=== PATIENT | male | born 1970 | race Caucasian/White ===

== ENCOUNTER 2021-02-19 08:16 | Emergency (ER) | payer OTHER ==
[~2021-02-19] VITALS: Ht 165.1 cm; Wt 65.8 kg
[~2021-02-19 08:16] MED LIST: ASPIR 8181 MG PO; CIALIS20 MG PO; KEFLEX500 MG PO; MAGOX 400400 MG PO; MYFORTIC360 MG PO; NORCO 5-325 TA1 EACH PO; OMEPRAZOLE20 M1 PO; PREDNISONE 5 MG5 M1 PO; PROGRAF1 MG PO; VITAMIN D2000 UNI1 PO; [UNRECOGNIZED DRUG - OTHER]
[2021-02-19 09:47] LABS: ABSOLUTE NEUTROPHILS 2.9 thou/uL (1.4-8.2); BASOPHILS 0.8 % (0.0-2.0); EOSINOPHILS 1.6 % (0.0-3.0); HEMATOCRIT 41.3 % (42.0-52.0); HEMOGLOBIN 13.4 gm/dL (14.0-18.0); LYMPHOCYTES 18.4 % (24.0-44.0); MCH 28.7 pg (26.0-34.0); MCHC 32.4 g/dL (28.0-37.0); MCV 88.6 fL (80.0-100.0); MONOCYTES 13.1 % (1.0-8.0); PLATELET COUNT 168 thou/uL (150-400); POLYS 66.1 % (36.0-66.0); RBC 4.66 mil/uL (4.50-6.00); RDW 15.2 % (10.5-14.5); WBC 4.3 thou/uL (4.0-11.0)
[2021-02-19 10:07] LABS: CALCIUM 8.9 mg/dL (8.5-10.1); CREATININE 1.5 mg/dL (0.7-1.3); POTASSIUM 4.5 mmol/L (3.5-5.1)
[2021-02-19 10:17] LABS: ALBUMIN 3.9 g/dL (3.4-5.0); TOTAL BILIRUBIN 0.9 mg/dL (0.2-1.0); TOTAL PROTEIN 7.7 g/dL (6.4-8.2)
[2021-02-19 10:32] VITALS: BP 113/78
--- NOTE | 2021-02-19 14:01 | EKG ---
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 02/19/21 1400 0931 0931 Blue Garcia MD, FACGilberto /EPI
== END 2021-02-19 10:32 | disposition home or self-care (01) ==
LOC: ER 08:16
PROVIDERS: Emergency Medicine
DX: R06.00 Dyspnea, unspecified (principal); Z20.822 Contact with and (suspected) exposure to COVID-19; Z98.890 Other specified postprocedural states; Z79.899 Other long term (current) drug therapy; Z91.030 Bee allergy status; Z91.038 Other insect allergy status

== ENCOUNTER → 2021-03-07 | Outpatient (CLI) | payer OTHER | LOC: SJCVCIMAG 08:03 | PROVIDERS: ATTEND Internal Medicine | DX: I07.1 Rheumatic tricuspid insufficiency (principal); I44.1 Atrioventricular block, second degree; R06.00 Dyspnea, unspecified; R53.83 Other fatigue ==

== ENCOUNTER → 2021-03-26 | Outpatient (CLI) | payer OTHER ==
[~2021-03-26] VITALS: Ht 165.1 cm; Wt 63.5 kg
[~2021-03-26] MED LIST changes: +FAMOTIDINE 10 M10 MG PO; +PROGRAF 1 MG1 MG PO; -PROGRAF1 MG PO; +SENNA8.6 MG PO
[2021-03-26 10:06] VITALS: BP 113/65
[2021-03-26 10:26] LABS: HEMATOCRIT 39.8 % (42.0-52.0); HEMOGLOBIN 13.1 gm/dL (14.0-18.0); MCH 29.2 pg (26.0-34.0); MCHC 32.9 g/dL (28.0-37.0); MCV 88.8 fL (80.0-100.0); RBC 4.49 mil/uL (4.50-6.00); RDW 14.3 % (10.5-14.5); WBC 4.7 thou/uL (4.0-11.0)
[2021-03-26 10:43] LABS: CALCIUM 8.8 mg/dL (8.5-10.1); CREATININE 1.9 mg/dL (0.7-1.3); POTASSIUM 4.2 mmol/L (3.5-5.1)
--- NOTE | 2021-03-26 11:58 | EKG ---
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 : 1970 Requested By: Olayinka Burger Order Number: [id number] MD: Blue Garcia Measurements Intervals [place] Rate: 34 P: 0 DC: 219 QRS: 3 QRSD: 98 T: 9 QT: 528 QTc: 397 Interpretive Statements Predominant 2:1 AV block Compared to ECG 02/19/2021 09:31:34 2:1 AV block now present Sinus rhythm no longer present Electronically Signed On 03-26-2021 11:58:31 PHOTOENGRAVING FINISHER by Blue Garcia [email or web address] <ELECTRONICALLY SIGNED> By: Blue Garcia MD, [facility] 03/26/21 1158 1019 18 Blue Garcia MD, FACC /EPI
--- NOTE | 2021-04-18 00:09 | CATHLAB ---
[facility] [address] [place] [address] INVASIVE PROCEDURE REPORT Name: HILL BAEZ Room #: REG SALVADOR Fidelia#: [id number] Admission: 03/26/21 Attend Phys: Rob Burger Discharge: Date of : 66 Report #: [id number] THIS REPORT FOR: cc: Usama Soliz MD, Neal A. MD Lammoglia, Francisco J. MD ~ APPROVED REPORT Study performed: 03/26/2021 12:09:31 Patient Details Patient Status: Out-Patient Room #: The patient is a 51 year-old male Event Personnel Rob Burger Power Transformer Assembler, Camila Clement RN RN, Kristin Roth RTR Myron, Mckinley Parkinson RTR Monitor Procedures Performed Left Heart Cath w/or w/o Coronaries [id number] [facility] Art Access - L femoral artery* 18795 Initial Mod Sed Same Phys/QHP Gr5y 951534 Hemostasis with Manual pressure 53220 Mod Sed Same Phys/QHP Ea 585348, supervision of conscious sedation Indication Chest pain Procedure Narrative The Right Groin^ was infiltrated with 1% Lidocaine subcutaneous anesthesia. A PINNACLE 4FR Sheath #[id number] sheath was inserted into the LFA^. Coronary angiography was performed using coronary diagnostic catheters. The right coronary system was accessed and visualized with a JR4 catheter. The left coronary system was accessed and visualized with a JL4 catheter. The left ventricle was accessed and visualized with a JR4 catheter. Left ventricular/Aortic Valve gradient assessed via catheter pullback. Left ventriculogram was performed in 30 degree projection. Hemostasis was obtained with manual pressure following sheath removal without any complications. The patient tolerated the procedure well and there were no complications associated with the procedure. Intraoperative Conscious Sedation Sedation start time: 12:34 Case end Time: [facility] [employer] [place] [address] INVASIVE PROCEDURE REPORT Name: HILL BAEZ Room #: REG [facility]#: [id number] Admission: 03/26/21 Attend Phys: Rob Solano Discharge: Date of : 66 Report #: [id number] 13:11 Versed 2 mg Fluoro Time: 2.80 minutes Dose: DAP 2541.10 cGycm2 338 mGy Contrast Type and Amount: Omnipaque 60 ml Coronary Angiography The patient's coronary anatomy is left dominant. Diagnostic Cath Left Main SMALL TO MODERATE CALIBER VESSEL BIFURCATES INTO LEFT ANTERIOR DESCENDING AND LEFT CIRCUMFLEX VESSEL. IT IS FREE OF HIGH GRADE LESIONS LAD SMALL CALIBER TYPE II VESSEL WITH MILD PROXIMAL IRREGULARITIESUNTIL PRIOR TO FIRST BRANCH. THE LAD GIVES RISE TO A SMALL FIRST DIAGONAL AND SECOND DIAGONAL IT COURSE TOWARDS APEX TERMINATING A DIMINUITIVE BIFURCATING VESSEL WITH HIGH GRADE LESION DISTALLY. THE LAD PROPER HAS MILD TO MODERATE LUMINAL IRREGULARITIES IN ITS COURSE Diagonal 1 SMALL CALIBER VESSEL WITH MODERATE IRREGULARITIES PROXIMALLY Diagonal 2 DIMINUITIVE VESSEL MILD LUMINAL IRREGULARITIES Circumflex MODERATE CALIBER DOMINANT VESSEL GIVES RISE TO EARLY MARGINAL WHICH IS SMALL IN CALIBER. THIS BRANCH HAS A HIGH GRADE LESION AFTER A SUB BRANCH ORIGIN. LCX CONTINUE IN AV GROOVE WITHOUT SIGNIFICANT LESION UNTIL CRUX OF THE HEART BRANCHES WHICH ARE SMALL AND DIFFUSELY DISEASED OM1 MODERATE CALIBER WITH HIGH GRADE CONCENTRIC LESION OM2 SMALL CALIBER L PDA SMALL CALIBER WITHOUT HIGH GRADE LESIONS Right Coronary SMALL CALIBER VESSEL OF NORMAL ORIGIN WITHOUT FLOW LIMITING LESIONS Left Ventriculography Left Ventriculography was not performed. Hemodynamics The aortic pressure is 130/64 mmHg with a mean of 85 mmHg. The left ventricular pressure is 146/11 mmHg with a mean of mmHg. The left ventricular end diastolic pressure is 37 mmHg. Conclusion 1. CORONARY ARTERY DISEASE A. HIGH GRADE TERMINAL LAD DISEASE IN DIMINUITIVE SIZE VESSEL [facility] [address] [place] [address] INVASIVE PROCEDURE REPORT Name: HILL BAEZ Room #: REG CL [facility]#: [id number] Admission: 03/26/21 Attend Phys: Rob Solano Discharge: Date of : 66 Report #: [id number] B. SIGNIFICANT OM1 LESION 2. ABNORMAL HEMODYNAMICS WITH INCREASED LVEDP Recommendations Cardiac Risk Reduction Program Medical Therapy PCI OF OM1 AFTER DUAL CHAMBER PACER INSERTED TO MINIMIZE DAP COMPLICATIONS <ELECTRONICALLY SIGNED> By: Rob Burger MD 04/18/21 0008 Rob Burger MD /INF
== END | disposition home or self-care (01) ==
LOC: CATH 07:32
PROVIDERS: ATTEND Internal Medicine
DX: R07.9 Chest pain, unspecified (principal); I25.10 Atherosclerotic heart disease of native coronary artery without angina pectoris; E11.9 Type 2 diabetes mellitus without complications; E78.5 Hyperlipidemia, unspecified; R94.39 Abnormal result of other cardiovascular function study; Z98.890 Other specified postprocedural states; Z79.899 Other long term (current) drug therapy; Z20.822 Contact with and (suspected) exposure to COVID-19; Z94.0 Kidney transplant status; Z79.82 Long term (current) use of aspirin

== ENCOUNTER 2021-03-27 09:30 | Observation (INO) | payer OTHER ==
[~2021-03-27] VITALS: Ht 162.6 cm; Wt 64.0 kg
[2021-03-27 10:09] VITALS: BP 92/65
[2021-03-27 13:30] VITALS: BP 157/90
[2021-03-27 15:30] VITALS: BP 117/75
[2021-03-27 19:51] VITALS: BP 131/82
[2021-03-27 23:58] VITALS: BP 134/83
[2021-03-28] VITALS (8 sets, daily range): BP systolic 112–141; BP diastolic 70–91
--- NOTE | 2021-03-28 00:13 | NUR ---
ASSESSMENTS CHARTED, MEDS CHARTED GIVEN. PATIENT RESTING IN BED DURING SHIFT. C/O PAIN AT INCISION SITE. C/O ITCHING AT DRESSING SITE AND BACK. CONTINUE CARES. PLAN IS TO DISCHARGE IN THE AM.
--- NOTE | 2021-03-28 16:35 | NUR ---
ASSUMED PT CARE THIS MORNING. PT A&oX4 AND COMMUNICATING NEEDS APPRORPRIATELY TO STAFF. PT HAD A HEADACHE AND PAIN OVER THE INCISION THAT WAS WELL CONTROLLED WITH PO PAIN MEDICATION.HAD A GOOD APPETITE AND CONSUMED A MAJORITY OF THEIR MEALS. PT AMBULATES INDEPENDENTLY, NO ISSUES. BOTH IVS DISCONTINUED, TELE DISCONTINUED. DC INSTRUCTIONS REVIEWED WITH PT AND FAMILY. PT WAS SENT HOME WITH ALL OF THEIR BELONGINGS TO THE CARE OF FAMILY.
--- NOTE | 2021-04-01 10:14 | CATHLAB ---
[facility] [address] [address] INVASIVE PROCEDURE REPORT Name: HILL BAEZ Room #: 212-P [facility] Jak Mistry#: [id number] Admission: 03/27/21 Attend Phys: Rob Burger Discharge: 03/28/21 Date of : 66 Report #: [id number] THIS REPORT FOR: cc: Usama Soliz MD, Neal A. MD Lammoglia, Francisco J. MD ~ APPROVED REPORT Study performed: 03/27/2021 10:03:55 Patient Status: Out-Patient Room #: Event Personnel: Rob Burger MD Exam: Insertion of Dual Chamber Permanent Pacemaker Indications: Bradycardia, second-degree type II block The patient is a 51 year-old male with a history of Second-degree heart block. Conscious Sedation Demerol 25 mg IV push Implanted Devices: Medtronic: PPM-D; Model #: W3DR01; Serial #: [id number]; Expiration Date: 08/20/2022 Medtronic: RA Lead; Model #: 4076-45; Serial #: [id number]; Expiration Date: 01/10/2023 Medtronic: RV Lead: Model #: 4076-52; Serial #: [id number]; Expiration Date: 01/10/2023 Procedure The patient underwent informed consent. We discussed the details of the procedure including the risks, which include, but not limited to bleeding, infection, vascular damage, cardiac perforation, and pneumothorax. He understood these risks and was willing to proceed. As such, he was brought to the EP/Cardiac Catheterization laboratory in a fasting and sedated state and prepped and draped in a The patient underwent conscious sedation, with no related complications. The patient was brought to the EP/Cardiac Catheterization laboratory and the left chest and shoulder were prepped and draped in a sterile manner. IV conscious sedation was used throughout procedure with appropriate monitoring and was performed in the presence of a registered nurse who was an independent trained observer other than the physician performing the procedure. [address] [address] INVASIVE PROCEDURE REPORT Name: HILL BAEZ Room #: 212-P [facility] IN [facility].#: [id number] Admission: 03/27/21 Attend Phys: Rob Solano Discharge: 03/28/21 Date of : 66 Report #: [id number] The left subclavian region was infiltrated with 2% Lidocaine subcutaneous anesthesia. A transverse incision was made in the left upper chest cavity. The subcutaneous pocket was formed via blunt dissection. Percutaneous venous access was achieved and an introducer sheath was inserted into the left Subclavian vein. Sheaths were positions using the modified Seldinger technique Through the introducer sheaths the atrial and ventricular lead wires were positioned in the right atrial appendage and right ventricular apex respectively. Capturing and sensing thresholds were verified. Electrode Parameters P Wave: 2.4mV R Wave: 9.7mV Atrial Threshold: 0.4V@0.5ms Ventricular Threshold: 0.5V@0.5ms Atrial Resistance: 399 Ohms Ventricular Resistance: 608 Ohms Dual Chamber The atrial and ventricular leads were then secured using 2 oh nonabsorbable sutures. The subcutaneous pocket was irrigated with vancomycin antibiotic solution.The atrial and ventricular leads were attached to the appropriate receptacles on the pulse generator and set screws firmly tightened to insure adequate contact and stability. The lead and pulse generator were placed into the subcutaneous pocket. Sharp and sponge counts were confirmed to be correct. At this time the pocket was closed subcutaneously with a 2 oh nonabsorbable suture in a running locking stitch and the skin was closed with a 3-0 Vicryl in a subcuticular. The operative site was dressed in sterile fashion with Steri-Strips 4 x 4 OpSite and the patient was transferred to the floor in stable condition. Complications The patient tolerated the procedure well and there were no complications associated with the procedure. Findings Specimens Removed: N/A Estimated Blood Loss: 10 cc Conclusion 1. Successful insertion of a Medtronic dual-chamber pacemaker system [facility] [address] [place] [address] INVASIVE PROCEDURE REPORT Name: SASHAHILL VASQUEZ Room #: 212-P [facility] IN .R.#: [id number] Admission: 03/27/21 Attend Phys: Rob Solano Discharge: 03/28/21 Date of : 66 Report #: [id number] Recommendations 1. Routine post insertion protocol <ELECTRONICALLY SIGNED> By: Rob Burger MD 04/01/21 1014 1014 1014 Rob Burger MD /INF
== END 2021-03-28 16:50 | disposition home or self-care (01) ==
LOC: CATH 09:30 → 2N 13:38 → CATH 13:39 → 2N 03-28 16:50
PROVIDERS: ADMIT Internal Medicine; ATTEND Internal Medicine
DX: I44.2 Atrioventricular block, complete (principal); Z20.822 Contact with and (suspected) exposure to COVID-19; K21.9 Gastro-esophageal reflux disease without esophagitis; F15.90 Other stimulant use, unspecified, uncomplicated; Z79.899 Other long term (current) drug therapy